=== PATIENT | male | born 1945 | race Caucasian/White ===

== ENCOUNTER 2021-06-10 10:08 | Emergency (ER) | payer MEDICARE, OTHER ==
[~2021-06-10 10:08] MED LIST: AMLODIPINE BESY10 MG PO; COZAAR 25MG TAB25 MG PO; CRESTOR20 MG PO; FISH OIL + D31 EACH PO; GLUCOTROL5 MG PO; NORCO 5-325 TA1 EACH PO; VITAMIN C100 MG PO
[2021-06-10 11:51] LABS: BASOPHIL 0.5 % (0-2); EOSINOPHIL 0.5 % (0-7); HCT 39.3 % (42.0-52.0); HGB 12.9 g/dl (13.2-18.0); LYMPHOCYTE 14.6 % (15-48); MCH 29.4 pg (25.0-31.0); MCHC 32.8 g/dL (32.0-36.0); MCV 89.5 fL (78.0-100.0); MONOCYTE 10.2 % (0-12); NRBC 0; PLT 144 K/uL (150-400); RBC 4.39 M/uL (4.70-6.00); RDW 13.4 % (11.5-14.0); WBC 6.6 K/uL (4.0-10.5)
[2021-06-10 12:13] LABS: INR 1.48 (0.9-1.2); PROTHROMBIN TIME 17.2 SECONDS (11.8-13.4); PTT 36.6 SECONDS (24.4-34.7)
[2021-06-10 12:18] LABS: ALBUMIN 3.1 g/dL (3.4-5.0); BILIRUBIN - TOTAL 1.2 mg/dL (0.2-1.0); BUN/CREAT RATIO (CALC) 18.9 RATIO; CREATININE 1.27 mg/dL (0.67-1.17); GLOBULIN (CALCULATION) 3.7 g/dL; POTASSIUM 4.8 mmol/L (3.5-5.1); TOTAL PROTEIN 6.8 g/dL (6.4-8.2)
== END 2021-06-10 17:21 | disposition home or self-care (01) ==
LOC: FER 10:08
PROVIDERS: Internal Medicine
DX: N17.9 Acute kidney failure, unspecified (principal); R18.8 Other ascites; R79.0 Abnormal level of blood mineral; J90 Pleural effusion, not elsewhere classified; E11.9 Type 2 diabetes mellitus without complications; I10 Essential (primary) hypertension; I51.9 Heart disease, unspecified; Z95.1 Presence of aortocoronary bypass graft; Z82.49 Family history of ischemic heart disease and other diseases of the circulatory system
CPT/HCPCS: 36415; 71045; 76705; 80053; 83880; 85025; 85610; 85730; J7050; P9046

== ENCOUNTER 2021-06-23 16:39 | Emergency (ER) | payer MEDICARE, OTHER ==
[2021-06-23 18:47] LABS: BASOPHIL 0.5 % (0-2); EOSINOPHIL 0.5 % (0-7); HCT 39.2 % (42.0-52.0); HGB 13.1 g/dl (13.2-18.0); LYMPHOCYTE 13.6 % (15-48); MCH 29.6 pg (25.0-31.0); MCHC 33.4 g/dL (32.0-36.0); MCV 88.7 fL (78.0-100.0); MONOCYTE 8.6 % (0-12); MPV 10.2 fL (6.0-9.5); NEUTROPHIL 76.7 % (41-80); NRBC 0; PLT 143 K/uL (150-400); RBC 4.42 M/uL (4.70-6.00); RDW 13.9 % (11.5-14.0); WBC 7.6 K/uL (4.0-10.5)
[2021-06-23 19:03] LABS: ALBUMIN 2.8 g/dL (3.4-5.0); BILIRUBIN - TOTAL 0.8 mg/dL (0.2-1.0); BUN/CREAT RATIO (CALC) 22.6 RATIO; CREATININE 1.46 mg/dL (0.67-1.17); GLOBULIN (CALCULATION) 3.8 g/dL; TOTAL PROTEIN 6.6 g/dL (6.4-8.2)
[2021-06-23 21:43] LABS: INR 1.44 (0.9-1.2); PROTHROMBIN TIME 16.8 SECONDS (11.8-13.4)
[2021-06-23 22:06] LABS: WBC (FLUID) 342 WBC/uL
[2021-06-23 22:18] LABS: CLARITY (FLUID) TURBID; COLOR (FLUID) STRAW
[2021-06-23 22:24] LABS: RBC (FLUID) 50 RBC/uL
== END 2021-06-23 22:55 | disposition home or self-care (01) ==
LOC: FER 16:39
PROVIDERS: Emergency Medicine Emergency Medical Services; Nurse Practitioner Family
DX: R18.8 Other ascites (principal); Z87.19 Personal history of other diseases of the digestive system; Z95.1 Presence of aortocoronary bypass graft
CPT/HCPCS: 36415; 80053; 82945; 84157; 85025; 85610; 87070; 89051; 89060; 96374

== ENCOUNTER 2021-07-15 09:14 | Emergency (ER) | payer MEDICARE, OTHER ==
[2021-07-15 11:00] LABS: ALBUMIN 2.7 g/dL (3.4-5.0); BUN/CREAT RATIO (CALC) 29.4 RATIO; CREATININE 1.63 mg/dL (0.67-1.17); GLOBULIN (CALCULATION) 3.9 g/dL; POTASSIUM 5.8 mmol/L (3.5-5.1); TOTAL PROTEIN 6.6 g/dL (6.4-8.2)
== END 2021-07-15 14:26 | disposition home or self-care (01) ==
LOC: FER 09:14
PROVIDERS: Internal Medicine
DX: R18.8 Other ascites (principal); E87.1 Hypo-osmolality and hyponatremia; E87.5 Hyperkalemia; N17.9 Acute kidney failure, unspecified; I12.9 Hypertensive chronic kidney disease with stage 1 through stage 4 chronic kidney disease, or unspecified chronic kidney disease; N18.9 Chronic kidney disease, unspecified; E11.22 Type 2 diabetes mellitus with diabetic chronic kidney disease
CPT/HCPCS: 36415; 76705; 80053; 96374; 96376; J7040; P9046

== ENCOUNTER 2022-01-17 18:46 | Emergency (ER) | payer MEDICARE, OTHER | END 2022-01-17 20:09 | disposition home or self-care (01) | LOC: FER 18:46 | DX: T81.89XA Other complications of procedures, not elsewhere classified, initial encounter (principal); E11.9 Type 2 diabetes mellitus without complications | CPT/HCPCS: 99283 ==